=== PATIENT | male | born 1990 | race Caucasian/White ===

== ENCOUNTER → 2016-11-11 | Outpatient (CLI) | payer OTHER ==
[~2016-11-11] MED LIST: HYDR-2122 PO; HYDR-4072 PO; OMEP-29 PO; TRAM50TA4 PO
== END ==
LOC: LAB 11:21
PROVIDERS: ATTEND Nurse Practitioner
DX: R19.7 Diarrhea, unspecified (principal); D72.828 Other elevated white blood cell count
CPT/HCPCS: 87507